=== PATIENT | male | born 1965 | race Caucasian/White ===

== ENCOUNTER 2018-07-07 21:12 | Inpatient (IN) ==
[2018-07-07] MEDS ORDERED: NITROGLYCERIN SL PRN (21:40)
[2018-07-07] MEDS ORDERED: ASPIRIN PO ONE (21:40)
[2018-07-07 21:58] LABS: BASO# 0.03 X1000 (0.0-0.2); BASO% 0.2 % (0.0-0.8); EOS# 0.26 X1000 (0.0-0.7); EOS% 2.2 % (0.0-10.0); HEMATOCRIT 45.5 % (42.0-52.0); HEMOGLOBIN 15.6 g/dL (14.0-18.0); IMM GRAN# 0.04 X1000 (0.0-0.04); IMM GRAN% 0.3 % (0.0-0.5); LYMPH# 2.07 X1000 (1.2-3.4); LYMPH% 17.2 % (20.5-51.1); MCH 32.1 PG (27-31); MCHC 34.3 g/dL (33-37); MCV 93.6 FL (81-99); MONO# 0.58 X1000 (0.11-0.59); MONO% 4.8 % (1.7-9.3); MPV 9.4 FL (7.4-10.4); NEUT# 9.08 X1000 (1.4-6.5); NEUT% 75.3 % (42.2-75.2); PLT 231 X1000 (130-400); RBC 4.86 XMIL (4.7-6.1); RDW 12.6 % (11.5-14.5); WBC 12.06 X1000 (4.8-10.8)
[2018-07-07 22:06] LABS: INR 0.98; PROTIME 13.8 Seconds (11.0-16.0)
[2018-07-07 22:07] LABS: PTT 30.2 Seconds (22.3-41.8)
--- NOTE | 2018-07-07 22:11 | Diag Imaging Result Doc PS360 ---
EXAM: CHEST-2 VIEWS - 07/07/2018 HISTORY: chest pain TECHNIQUE: Chest two views COMPARISON: None. FINDINGS: Heart size is normal. There is minimal linear atelectasis or scarring at the lateral left base. The lungs otherwise appear clear. There is no pleural effusion or pneumothorax identified. IMPRESSION: Minimal linear atelectasis or scarring at lateral left base. No other evidence of acute disease. Electronically signed by Blair Cabrales 07/07/2018 10:09 PM
[2018-07-07 23:01] LABS: AGAP 14; ALBUMIN 4.3 g/dL (3.5-5.0); ALKALINE PHOSPHATASE 74 U/L (32-122); BUN 13 mg/dL (8-22); CALCIUM 9.2 mg/dL (8.8-10.2); CHLORIDE 102 mmol/L (98-107); COSMO 278; ESTIMATED GFR > 60; GLUCOSE 147 mg/dL (70-104); GOT 27 U/L (10-34); GPT 33 U/L (10-44); POTASSIUM 3.4 mmol/L (3.5-5.1); SODIUM 138 mmol/L (136-145); TCO2 22 mmol/L (25-35); TOTAL BILIRUBIN 0.57 mg/dL (0.20-1.00); TOTAL PROTEIN 6.4 g/dL (6.3-8.3)
[2018-07-07 23:05] LABS: CK PROFILE 256 U/L (24-204)
[2018-07-07] MEDS ORDERED: NITROGLYCERIN TOP ONE (23:09)
[2018-07-07 23:25] LABS: CK-MB 2.66 ng/mL (0.0-5.0)
--- NOTE | 2018-07-07 23:48 | PROVIDER DOCUMENTATION ---
This chart was entered by Glo Mccarty Scribe, acting as scribe for Prem Torres MD. HPI-Chest Pain - General Chief Complaint: Chest Pain Stated Complaint: CHEST PAIN/HISTORY OF HEART PROBLEMS Time Seen by Provider: 07/07/18 21:52 Source: patient Allergies/Adverse Reactions: Patient Allergies Allergy/AdvReac Type Severity Reaction Status Date / Time No Known Allergies Allergy Verified 07/07/18 21:42 Home Medications: Home Medication List Medication Instructions Recorded Confirmed Last Taken Type Aspirin [Adult Low Dose Aspirin EC] 1 tab PO QAM 07/07/18 07/07/18 07/07/18 09: 00 History Hydrochlorothiazide 1 cap PO BID 07/07/18 07/07/18 07/07/18 09:00 History Metoprolol Succinate E.r. [Toprol 1 tab PO QAM 07/07/18 07/07/18 07/07/18 09:00 History Xl] Nitroglycerin [Nitrostat] 1 tab SL DIRECTED 07/07/18 07/07/18 Unknown History Ondansetron [Zofran Odt] 1 tab SL Q6H PRN PRN 07/07/18 07/07/18 Unknown History Prasugrel [Effient] 1 tab PO QAM 07/07/18 07/07/18 07/07/18 09:00 History Rosuvastatin Calcium [Crestor] 1 tab PO QPM 07/07/18 07/07/18 07/06/18 21:00 History - History of Present Illness-CP Nature of Presenting Problem: pt is a 52 yr old male presenting with complaint of chest pain, sudden onset at 1899 this date, now resolved. pt admits shortness of breath with episode, took 1 asa, no nitro. pt reports pressure like pain radiated down left arm, pt denies nausea/vomiting. pt does admit stent placed 04/21 Location: reports: central Chest Pain Radiation: reports: arms (left) Quality of Pain: reports: pressure Severity in ED: moderate (10/12) Onset/Duration: abrupt (1899) Timing: still present Context/Activities at Onset: reports: light activity Modifying Factors: improves with: analgesics (ASA-complete relief) Associated Symptoms: reports: shortness of breath. denies: abdominal pain, nausea, vomiting Nitro Today/Relief: no nitro taken today Aspirin Treatment Today: 325 mg x 1, provided at home Similar Symptoms Previously?: Yes Recently Seen Here or By Another Healthcare Provider: No Review of Systems - Adult - REVIEW OF SYSTEMS - ADULT Constitutional: denies: chills, fever Eyes: denies: blurred vision, double vision Ears, Nose, Mouth & Throat: reports: no symptoms reported Cardiovascular: reports: chest pain. denies: palpitations, syncope Respiratory: reports: shortness of breath. denies: cough, wheezing Gastrointestinal: denies: nausea, vomiting Genitourinary: reports: no symptoms reported Musculoskeletal: denies: back pain, muscle aches, neck pain Integumentary: reports: no symptoms reported Neurological: denies: dizziness/vertigo, headache/migraines Psychiatric: reports: no symptoms reported Endocrine: reports: no symptoms reported Hematologic/Lymphatic: reports: no symptoms reported Allergic/Immunologic: reports: no symptoms reported All Other Systems: Reviewed and Negative Past History - Adult - PAST MEDICAL HISTORY-ADULT Review of Records: reports: Old Records Reviewed, Nursing Assessment Review, Medications Reviewed, Social history reviewed & non-contributory. Major Childhood Illnesses: reports: denies history Cardiovascular: reports: denies history Respiratory: reports: denies history Gastrointestinal: reports: denies history Obstetrical/Gynecological: reports: denies history Genitourinary: reports: denies history Musculoskeletal: reports: denies history Neurological: reports: denies history Endocrine/Immune: reports: denies history Other Conditions: reports: denies history - IMMUNIZATION STATUS Childhood Immunizations: See Nurse Assessment Flu Vaccine: See Nurse Assessment - FAMILY HISTORY Family History: reviewed, not pertinent - SOCIAL HISTORY Smoking: cigarettes Provider spent 3-5 mins advising pt. on dangers of tobacco.: Discussed manners to quit use, and f/u contacts for add'l counseling. Substance Use: denies Living Situation: family Physical Exam-General - PHYSICAL EXAM-ADULT Initial Vital Signs Reviewed: Yes - CONSTITUTIONAL General Appearance: appears well, alert, no apparent distress - EYES Eyes: PERRL/EOMI - HEAD, EARS, NOSE, MOUTH & THROAT HENMT: normocephalic/atraumatic, moist mucous membranes, normal ENT inspection - NECK Neck: non-tender, full range of motion, supple - RESPIRATORY Respiratory: chest non-tender, lungs clear, normal breath sounds - CARDIOVASCULAR Cardiovascular: normal peripheral pulses, regular rate, rhythm, no edema - GASTROINTESTINAL (ABDOMEN) Abdominal Exam: normal bowel sounds, non tender, soft - LYMPHATIC Lymphatic: no adenopathy - MUSCULOSKELETAL Back Exam: normal inspection, no CVA tenderness, no vertebral tenderness Extremity: normal range of motion, non-tender, normal gait, normal inspection - SKIN Integumentary: normal color, normal turgor, warm/dry - NEUROLOGIC Neurologic: grossly normal, no motor/sensory deficits - PSYCHIATRIC Psych/Mental Status: normal mood/affect, normal thought content, normal thought process, oriented x 3 - HEART Score HEART Score: History: Slightly Suspicious HEART Score: ECG: Non-Specific Repolarization Disturbance/LBBB/PM HEART Score: Age: 45-65 Years HEART Score: Risk Factors for Atherosclerotic Disease: > or = 3 Risk Factors or History of Atherosclerotic Disease HEART Score: Troponin: < or = Normal Limit Total HEART Score:: 4 Progress - PLAN OF CARE/RESULTS Progress/Plan/Lab Results: Vital Signs - 8 hr 07/07/18 21:20 07/07/18 21:52 07/07/18 21:53 Temperature 97.6 F Pulse Rate 96 H 89 85 Respiratory Rate 15 20 21 Blood Pressure 145/79 143/96 O2 Sat by Pulse Oximetry 100 96 07/07/18 22:10 07/07/18 22:19 07/07/18 22:21 Temperature Pulse Rate 89 83 78 Respiratory Rate 29 H 18 25 H Blood Pressure 125/83 O2 Sat by Pulse Oximetry 96 96 96 Laboratory Results - last 24 hr 07/07/18 07/07/18 07/07/18 21:41 21:41 21:41 WBC 12.06 H RBC 4.86 Hgb 15.6 Hct 45.5 MCV 93.6 MCH 32.1 H MCHC 34.3 RDW Std Deviation 12.6 Plt Count 231 MPV 9.4 Immature Gran % (Auto) 0.3 Neut % (Auto) 75.3 H Lymph % (Auto) 17.2 L [place] % (Auto) 4.8 Eos % (Auto) 2.2 Baso % (Auto) 0.2 Immature Gran # (Auto) 0.04 Neut # (Auto) 9.08 H Lymph # (Auto) 2.07 [place] # (Auto) 0.58 Eos # (Auto) 0.26 Baso # (Auto) 0.03 PT INR PTT (Actin FS) Sodium 138 Potassium 3.4 L Chloride 102 Carbon Dioxide 22 L Anion Gap 14 BUN 13 Creatinine 1.0 Estimated GFR/1.73 m2 > 60 BUN/Creatinine Ratio 13 Glucose 147 H Calculated Osmolality 278 Calcium 9.2 Total Bilirubin 0.57 AST 27 ALT 33 Alkaline Phosphatase 74 Creatine Kinase 256 H Creatine Kinase Index 1.0 CK-MB (CK-2) 2.66 Troponin T [id number] Pept 52 Total Protein 6.4 Albumin 4.3 Globulin 2.1 Albumin/Globulin Ratio 2.0 07/07/18 07/07/18 21:41 21:41 WBC RBC Hgb Hct MCV MCH MCHC RDW Std Deviation Plt Count MPV Immature Gran % (Auto) Neut % (Auto) Lymph % (Auto) [place] % (Auto) Eos % (Auto) Baso % (Auto) Immature Gran # (Auto) Neut # (Auto) Lymph # (Auto) [place] # (Auto) Eos # (Auto) Baso # (Auto) PT 13.8 INR 0.98 PTT (Actin FS) 30.2 Sodium Potassium Chloride Carbon Dioxide Anion Gap BUN Creatinine Estimated GFR/1.73 m2 BUN/Creatinine Ratio Glucose Calculated Osmolality Calcium Total Bilirubin AST ALT Alkaline Phosphatase Creatine Kinase Creatine Kinase Index CK-MB (CK-2) Troponin T < 0.010 [id number] Pept Total Protein Albumin Globulin Albumin/Globulin Ratio Orders Category Date Time Status Cardiac Monitoring DIRECTED Care 07/07/18 21:41 Active Oxygen Therapy- ED Nursing DIRECTED Care 07/07/18 21:41 Active Saline Loc NOW Care 07/07/18 21:41 Active CHEST-2 VIEWS [RAD] Stat Exams 07/07/18 21:41 Completed CBC WITH ELECTRONIC DIFF [HEME] Stat Lab 07/07/18 21:41 Completed CK PROFILE [SP CHEM] Stat Lab 07/07/18 21:41 Completed COMPREHENSIVE METABOLIC PANEL [CHEM] Stat Lab 07/07/18 21:41 Completed PRO B-NATRIURETIC PEPTIDE Stat Lab 07/07/18 21:41 Completed PROTIME WITH INR [COAG] Stat Lab 07/07/18 21:41 Completed PTT [COAG] Stat Lab 07/07/18 21:41 Completed TROPONIN T Stat Lab 07/07/18 21:41 Completed TROPONIN T Stat Lab 07/07/18 23:37 Uncollected Aspirin Med 07/07/18 21:40 Discontinued 325 mg PO NOW ONE Nitroglycerin Med 07/07/18 23:09 Discontinued 0.5 inch TOP NOW ONE Nitroglycerin Sl [Nitroglycerin] Med 07/07/18 21:40 Discontinued 0.4 mg SL Q5M PRN PRN CP/SOB/Palp >45 yrs of Age Stat Oth 07/07/18 21:40 Ordered EKG [EKG] Stat Ther 07/07/18 21:41 Ordered A/P: Chest pain. Heart Score 3, had 2 stints placed in Apr 21, since this afternoon. First set trops neg. Vitals stable. Will admit for observation. Dr fraser will accept patient Result Diagrams: 07/07/18 21:41 07/07/18 21:41 - EKG 1 Time of EKG reading by physician:: 21:35 EKG Read and Signed by:: Prem Torres EKG Interpretation (*Must complete 3 of following elements*): Abnormal (non specific st and t wave abnormality) Rate: 96 Rhythm: sinus rhythm with short pr [place]: normal VT Interval: shortened - XRAY 1 XRAY Study: Chest Impression: Abnormal (Signed EXAM: CHEST-2 VIEWS - 07/07/2018 HISTORY: chest pain TECHNIQUE: Chest two views COMPARISON: None. FINDINGS: Heart size is normal. There is minimal linear atelectasis or scarring at the lateral left base. The lungs otherwise appear clear. There is no pleural effusion or pneumothorax identified. IMPRESSION: Minimal linear atelectasis or scarring at lateral left base. No other evidence of acute disease. Electronically signed by Blair Cabrales 07/07/2018 10:09 PM 07/07/182208 Interpreting Physician: Blair Cabrales MD Dictated Date/Time: 07/07/182206 cc : Radha Lezama MD;) - CONSULTS/PCP/HOSPITALIST Notification #1 *Consult/PCP/Hospitalist*: Dr fraser Time Discussed: 23:46 Consult Disposition: Admit Departure - Departure Date of Disposition Decision: 07/07/18 Time of Disposition Decision: 23:47 DIAGNOSIS: Chest pain Disposition: ADMITTED INPATIENT 09 Certified Medical Emergency: Emergent Condition: Fair Additional Freetext Instructions: ED Follow Up Instructions: You have been treated by a care provider in the Emergency Department. These instructions are being provided to you so you can have an understanding of how to care for yourself upon discharge. Upon discharge from the Emergency Department, you are responsible for making arrangements for follow-up care by a physician of your choice. Take all prescribed medications as directed. Return to the Emergency Department immediately for any new or worsening symptoms. You may call the Physician Referral phone number at [phone] to obtain a list of Physicians who are taking new patients. Discharge Education: Steps to Quit Smoking, [id number] - Critical Care Note This patient required my direct & personal management of CC.: No Attestation - Physician/ GIANNA Attestation Patient care was provided by Advanced Practice Provider:: No The physician spent face to face time with patient:: Yes Advanced Practice Provider documentation review:: Supervising physician onsite and consulted in the evaluation and care of this patient. The physician did have a face to face encounter with the patient. This chart was documented by the indicated scribe, (Glo Mccarty, Marlene) and accurately reflects the services I performed and decisions made by me, Prem Torres MD, as attested by the provider's signature.
[2018-07-08] MEDS ORDERED: KLOR-CON PO ONE (00:34)
[2018-07-08 00:59] LABS: CK INDEX 1.1 (0.0-2.5); CK-MB 2.48 ng/mL (0.0-5.0)
--- NOTE | 2018-07-08 01:17 | HISTORY AND PHYSICAL ---
Addendum Patient presented with chest pain. He is a CAD patient. He had a recent PCI in April. He was evaluated in the ER. His EKG also showed nonspecific ST changes. He reports chest pain, pressure similar to his previous anginal equivalent. He also had radiation down to his left arm. He has been compliant with all his medications. EXAM: Really unremarkable. Cardiac: Regular rate and rhythm. Pulmonary: Bilateral breath sounds. Clear to auscultation. DIAGNOSTICS: EKG was nonspecific. ASSESSMENT AND PLAN: The patient will be placed in observation for chest pain, serial enzymes. He just, I am not sure about myocardial perfusion imaging since he just had a catheterization about 3 months ago so, we will get Cardiology to evaluate in the morning and decide about that. We will keep him NPO in the meantime, pursue echo, and follow closely. cc: Deyvi Alexander MD
[2018-07-08] MEDS ORDERED: ZOFRAN ODT SL PRN (01:31)
[2018-07-08] MEDS ORDERED: TYLENOL PO PRN (01:31)
[2018-07-08] MEDS ORDERED: NITROGLYCERIN SL PRN (01:31)
[2018-07-08] MEDS ORDERED: ZOFRAN IV PRN (01:31)
[2018-07-08] MEDS: LOVENOX SUBQ SCH (02:01)
--- NOTE | 2018-07-08 02:12 | HISTORY AND PHYSICAL ---
CHIEF COMPLAINT: Chest pain. HISTORY OF PRESENT ILLNESS: This is a 52-year-old male with a history of hypertension, hyperlipidemia and coronary artery disease who previously had a stent in April 2018. He stated that he started having sudden onset chest pain today at around 1900. It was midsternal, radiated into his left arm. He said it was roughly 6/10. He had complete resolution of symptoms with taking a 325 mg aspirin. He stated the pain was more of a pressure. On arrival to the emergency room, as noted, his symptoms had resolved. He has a HEART score of 4. He will be admitted and observed with Cardiology consultation. PAST MEDICAL HISTORY: See HPI. PREVIOUS SURGICAL HISTORY: Tonsillectomy, cyst removal from right foot. 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 Smokes 1/2 pack of cigarettes per day. He is down from 2 packs of cigarettes per day. Has smoked for multiple years. He denies alcohol or illicit drugs. FAMILY HISTORY: Coronary artery disease and diabetes mellitus in first-degree relatives. ALLERGIES: No known drug allergies. HOME MEDICATIONS: Aspirin 81 mg p.o. daily, hydrochlorothiazide 12.5 mg p.o. b.i.d., Toprol 50 mg p.o. q.a.m., nitroglycerin 0.4 mg p.r.n., Zofran 8 mg q.6 p.r.n., Effient 10 mg one p.o. q.a.m., Crestor 20 mg p.o. q.a.m. REVIEW OF SYSTEMS: A 14-point review of systems conducted with the patient. Pertinent positives listed above in the HPI. All other systems reviewed and found to be negative. PHYSICAL EXAMINATION: VITAL SIGNS: Temperature 97.6, pulse 82, respirations 17, blood pressure 139/85, oxygen saturation 96% on room air. GENERAL: Pleasant 52-year-old male lying in the ER stretcher, awake, alert, oriented x3, answers all questions appropriately. HEENT: Head is atraumatic, normocephalic. Pupils equal, round, reactive to light. Extraocular eye movements intact. Sclerae are anicteric. Conjunctivae are pink. Oral mucosa is moist. NECK: Supple. No JVD. No thyromegaly. Trachea is midline. No cervical lymphadenopathy. CARDIAC: S1, S2 appreciated. No murmurs, gallops, or rubs. LUNGS: Decreased at bilateral bases. No rhonchi, wheezes, rales. Symmetric rise and fall with respirations. ABDOMEN: Soft, nondistended, nontender. Bowel sounds present in all 4 quadrants, normoactive. No pulsatile mass. No organomegaly. EXTREMITIES: No clubbing, cyanosis, or edema. GENITOURINARY: Patient voids. No bladder distention. Otherwise deferred. NEUROLOGICAL: Alert and oriented x3. No focal or motor deficits noted. Nonfocal examination. DIAGNOSTIC DATA: Chest x-ray: No pulmonary vascular congestion. Appears to be atelectasis or scarring at the left base. No infiltrate. Chronic COPD changes. LABORATORY DATA: WBC 12.06, hemoglobin 15.6, hematocrit 45.5, platelet count 231,000. Coagulations within normal limits. Sodium 138, potassium 3.4, chloride 102, carbon dioxide 22, BUN 13, creatinine 1, glucose 147. CK mildly elevated at 256. Troponin less than 0.010 x2 sets. ASSESSMENT AND PLAN: 1. Chest pain. Rule out acute myocardial infarction. A 325 aspirin was given in the emergency room. Nitroglycerin paste was placed on the patient's chest. He was mildly hypertensive on arrival. Will continue his beta rebecca, thiazide diuretic, his statin and his Effient. Consult Dr. Warren. Defer to Cardiology stress test versus cardiac catheterization. Recheck EKG in a.m. Trend cardiac enzymes. 2. Hypokalemia. Will give 40 mEq potassium, recheck in the a.m. 3. Hypertension. Continue home medications. 4. Hyperlipidemia. Continue home medications. 5. Tobacco use and abuse. Smoking cessation was gone over with the patient. He is working on quitting. He has cut back from 2 packs to 1/2 pack per day. Further recommendations per the patient's clinical course. Dictated by CARLOS Mendoza for Deyvi Alexander MD cc: CARLOS Mendoza MD
[2018-07-08 04:00] LABS: CK INDEX 1.2 (0.0-2.5); CK-MB 2.58 ng/mL (0.0-5.0)
[2018-07-08] MEDS: PRILOSEC PO SCH (06:15)
[2018-07-08 07:36] LABS: AGAP 11; BUN 11 mg/dL (8-22); CALCIUM 9.2 mg/dL (8.8-10.2); CHLORIDE 106 mmol/L (98-107); COSMO 277; CREATININE 0.7 mg/dL (0.7-1.2); ESTIMATED GFR > 60; GLUCOSE 107 mg/dL (70-104); POTASSIUM 4.1 mmol/L (3.5-5.1); SODIUM 139 mmol/L (136-145); TCO2 22 mmol/L (25-35)
--- NOTE | 2018-07-08 08:01 | EKG Report ---
Test Performed on : 07/08/2018 06:30:52 AM Test Reason : CP Blood Pressure : / mmHG Vent. Rate : 067 BPM Atrial Rate : 067 BPM P-R Int : 146 ms QRS Dur : 084 ms QT Int : 416 ms P-R-T Axes : 074 014 029 degrees QTc Int : 439 ms Normal sinus rhythm. Normal ECG When compared with ECG of 07-JUL-2018 21:33, (Unconfirmed) Nonspecific T wave abnormality no longer evident in Inferior leads Nonspecific T wave abnormality no longer evident in Lateral leads Unconfirmed Result
--- NOTE | 2018-07-08 08:08 | EKG Report ---
Test Performed on : 07/07/2018 9:33:05 PM Test Reason : CP Blood Pressure : / mmHG Vent. Rate : 096 BPM Atrial Rate : 096 BPM P-R Int : 106 ms QRS Dur : 078 ms QT Int : 358 ms P-R-T Axes : 034 -09 028 degrees QTc Int : 452 ms Sinus rhythm. with short [place] Nonspecific ST and T wave abnormality Abnormal ECG No previous ECGs available Unconfirmed Result
[2018-07-08] MEDS ORDERED: ASPIRIN PO SCH (09:00)
[2018-07-08] MEDS ORDERED: TOPROL XL PO SCH ×2 (09:00→21:00)
[2018-07-08] MEDS ORDERED: EFFIENT PO SCH (09:00)
[2018-07-08] MEDS: HYDROCHLOROTHIAZIDE PO SCH ×2 (10:26→20:48)
[2018-07-08] MEDS ORDERED: COZAAR PO SCH (11:30)
--- NOTE | 2018-07-08 11:34 | PROGRESS NOTE ---
DATE: 07/08/2018 SUBJECTIVE: This morning, Mr. Null referred to be doing a lot better. Does not have any more chest pain. Of note, Mr. Null is a 52-year-old gentleman who has a history of hypertension, recently had a stent in the RCA April last year by Dr. Arreola in [place]. Presented to the emergency department yesterday because of acute onset of chest pain with extremely elevated blood pressure at home. This morning he feels a lot better. Chest pain is improved. OBJECTIVE: Vital signs: Blood pressure is 103/69, pulse is 63, respirations 16, temperature 98.1 degrees. The patient is saturating 97% on room air. General: Mr. Null is a 52-year-old gentleman he is in bed. No distress. HEENT: Mucosa is pink and moist. Anicteric. Acyanotic. Neck: Supple. Chest: Clear to auscultation. There were no crepitations, no rhonchi. Cardiovascular: Regular rate and rhythm. No murmurs, no rubs, no gallops. GI: Abdomen soft. Nontender. Bowel sounds present. Extremities: No pedal edema. Distal pulses are present. 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 There is no focal neurological deficit. LABORATORY DATA: None for today except for chemistry, which looks completely normal. The patient troponins have been trended 3 times. All have been negative. DIAGNOSTIC DATA: An EKG yesterday showed a normal sinus rhythm with normal axis, some ST-segment depression in V3, V4, V5, V6, but no T-waves abnormality. A repeat EKG this morning shows normalization of the mildly depressed ST-segment. ASSESSMENT: 1. Chest pain in somebody who had recently been treated for CT has stent in the right RCA S so in the right coronary. Troponins so far have been negative, but he did have some ST-segment depression in the lateral leads. I think it is reasonable to be seen by Cardiology and probably go ahead with a stress test. We will, however, wait for Cardiology recommendations on that. 2. Tobacco abuse. Patient has been counseled on cessation. 3. Hypertension. Stable. 4. Dyslipidemia. Controlled. The patient is on Crestor. So in general I think Mr. Null seems to be doing fairly okay. Pain has resolved. His medications have all been reviewed. I have not made any changes. We will be pending Cardiology evaluation today and go from there. cc: Yamil Khan MD
--- NOTE | 2018-07-08 11:59 | CONSULTATION ---
DATE OF CONSULTATION: 07/08/2018 IMPRESSION: 1. Episode of tachy palpitations with [id number] chest pressure for approximately 1 hour. Cardiac enzymes negative. Consider possible tachyarrhythmia precipitating symptoms. 2. Atherosclerotic coronary disease. Patient is status post angioplasty/stenting with drug- eluting stent to distal right coronary artery in April of 2018. Distal circulation beyond stented area reported to be of limited sized. 3. Hypertension. 4. Hyperlipidemia. 5. Tobacco abuse. RECOMMENDATIONS: 1. Lexiscan sestamibi study. 2. Empirically increased beta blockade to cover possible tachyarrhythmia. 3. Smoking cessation reinforced. HISTORY: This 52-year-old white male with past history of atherosclerotic coronary disease as outlined above. Hypertension, hyperlipidemia and tobacco abuse was admitted after he presented with tachy palpitations, and mild amount of chest pressure lasting perhaps an hour. He also had some associated shortness of breath. Symptoms started while he was seated in a chair. Elevated heart rate was noted when he checked his blood pressure as well as elevated blood pressure. Chest discomfort rated as a 4 on a scale of 10. He had somewhat similar symptoms prior to his coronary angioplasty/stent procedure. PAST MEDICAL HISTORY: 1. Atherosclerotic coronary disease. 2. Hypertension. 3. Hyperlipidemia. 4. Gastroesophageal reflux disease. 5. Tobacco abuse. PAST SURGICAL HISTORY: 1. Tonsillectomy. 2. Cyst removal from right foot. 3. Unspecified left arm surgery. ALLERGIES: He has no known drug allergies. MEDICATIONS PRIOR TO ADMISSION: As listed. 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 He has history of tobacco use. He does not use alcohol. FAMILY HISTORY: Positive for coronary artery disease. REVIEW OF SYSTEMS: Pulmonary: Negative beyond history of present illness. Constitutional: Negative beyond history of present illness. Gastrointestinal: Negative beyond history of present illness. Remainder of review of systems negative/noncontributory beyond history of present illness with 14 total systems reviewed. PHYSICAL EXAMINATION: General: This is an overweight middle-aged white male in no distress. Vital signs: Blood pressure 103/69, heart rate 63 and regular, and weight 234 pounds. HEENT: Extraocular movements appear intact. Mucous membranes are moist. Neck: Supple without jugular venous distention. No carotid bruits. Chest: Clear to auscultation bilaterally. Cardiac: Reveals a regular rate and rhythm without appreciable murmur or gallop. Abdomen: Soft and nontender. Bowel sounds normal. Extremities: Without edema. Neurologic: Exam reveals him to be alert and fully oriented. Speech is fluent. Moves all 4 extremities equally well. Skin: Warm and dry. Psychiatric: Reveals mood to be appropriate. PERTINENT DATA: Twelve lead EKG demonstrates normal sinus rhythm is within normal limits. LABORATORY DATA: Includes initial troponin less than 0.01. Followup troponin less than 0.01. Sodium 139, potassium 4.1, chloride 106, carbon dioxide 22, BUN 11, creatinine 0.7, glucose 107, triglycerides 66, total cholesterol 88, LDL cholesterol 47, and HDL cholesterol 37. D-dimer less than 0.27. cc: Oseas Bautista MD
[2018-07-08] MEDS ORDERED: LEXISCAN ONE (13:28)
--- NOTE | 2018-07-08 15:38 | Diag Imaging Result Document ---
PROCEDURE NAME: MYOCARDIAL PERF SCAN, STR/REST - 07/08/2018 FINDINGS/DESCRIPTION OF STUDY: Lexiscan Cardiolite stress test: Lexiscan was infused per standard protocol. There was no chest pain. Stress electrocardiogram was negative for ischemia. Following Lexiscan infusion, Cardiolite was injected, and 14.9 mCi of Cardiolite was injected for the rest phase and 44.2 mCi of Cardiolite was injected for the stress phase. Gated SPECT images were obtained in standard views. Images revealed normal left ventricular cavity size. Left ventricular ejection fraction by gated SPECT was 66%. There is a low grade, small to moderate size reversible perfusion defect in the inferior wall suggestive of ischemia. In addition, there is a low-grade reversibility in the inferolateral wall. Left ventricular ejection fraction 66%. CONCLUSIONS: 1. No chest pain. 2. Negative Lexiscan stress electrocardiogram. 3. Myocardial perfusion images revealed low-grade small to moderate sized reversible perfusion defect in the inferior wall and a low-grade defect in the inferolateral wall suggestive of ischemia. 4. Left ventricular ejection fraction by gated SPECT was 66%. cc: MD Yisel Durant PA
--- NOTE | 2018-07-08 16:54 | CARDIOLOGY PROGRESS NOTE ---
DATE: 07/08/2018 SUBJECTIVE: Patient continues without further chest discomfort or dyspnea on room air. OBJECTIVE: Vital Signs: Blood pressure 115/70, heart rate 62, oxygen saturation 96% on room air. Chest: Clear to auscultation. Cardiac: Exam reveals a regular rate and rhythm without appreciable murmur or gallop. DIAGNOSTIC STUDIES: Lexiscan sestamibi reports inducible ischemia in the inferior wall. IMPRESSION: 1. Recurrent chest discomfort, probably angina with associated palpitations. 2. Status post angioplasty/stenting of distal right coronary in April 2018. Lexiscan sestamibi study suggest likely restenosis. 3. Hypertension. 4. Hyperlipidemia. 5. Tobacco abuse. RECOMMENDATIONS: Results of abnormal Lexiscan sestamibi study discussed with the patient. Further evaluation with cardiac catheterization and selective coronary geography recommended. He prefers to transfer to [facility] for further evaluation with cardiac catheterization, given that this is where he had coronary stent placed. Arrangements have been made for patient to be transferred to [facility] tomorrow morning to have cardiac catheterization/coronary angiography/possible coronary intervention. cc: Oseas Bautista MD
[2018-07-08] MEDS ORDERED: CRESTOR PO SCH (21:00)
[2018-07-09] MEDS: LOVENOX SUBQ SCH (01:30)
[2018-07-09 07:23] LABS: BASO# 0.03 X1000 (0.0-0.2); BASO% 0.3 % (0.0-0.8); EOS# 0.19 X1000 (0.0-0.7); HEMATOCRIT 48.4 % (42.0-52.0); HEMOGLOBIN 16.1 g/dL (14.0-18.0); IMM GRAN# 0.04 X1000 (0.0-0.04); IMM GRAN% 0.4 % (0.0-0.5); LYMPH# 2.51 X1000 (1.2-3.4); LYMPH% 26.7 % (20.5-51.1); MCH 31.4 PG (27-31); MCHC 33.3 g/dL (33-37); MCV 94.3 FL (81-99); MONO% 5.3 % (1.7-9.3); MPV 9.5 FL (7.4-10.4); NEUT# 6.12 X1000 (1.4-6.5); NEUT% 65.3 % (42.2-75.2); PLT 235 X1000 (130-400); RBC 5.13 XMIL (4.7-6.1); RDW 12.7 % (11.5-14.5); WBC 9.39 X1000 (4.8-10.8)
[2018-07-09 07:31] VITALS: BP 101/66
[2018-07-09] MEDS: PRILOSEC PO SCH (07:35)
[2018-07-09 07:58] LABS: AGAP 13; BUN 12 mg/dL (8-22); CALCIUM 8.8 mg/dL (8.8-10.2); CHLORIDE 100 mmol/L (98-107); COSMO 271; CREATININE 0.7 mg/dL (0.7-1.2); ESTIMATED GFR > 60; GLUCOSE 111 mg/dL (70-104); POTASSIUM 4.2 mmol/L (3.5-5.1); SODIUM 135 mmol/L (136-145); TCO2 22 mmol/L (25-35)
--- NOTE | 2018-07-10 13:32 | DISCHARGE SUMMARY ---
ADMISSION DATE: 07/08/2018 DISCHARGE DATE: 07/09/2018 DISPOSITION: [facility]. CONSULTATION DURING THIS ADMISSION: Cardiology was consulted. Patient was seen by Dr. Bautista. INVASIVE PROCEDURES DONE DURING THIS ADMISSION: None. IMAGING STUDIES OF SIGNIFICANCE: 1. A chest x-ray was unremarkable. 2. A myocardial perfusion scan did reveal some low-grade to moderate sized reversible perfusion defect in the inferior wall, and low grade defect in the inferolateral wall suggestive of ischemia. ADMISSION DIAGNOSES: 1. Chest pain. 2. Hypokalemia. 3. Hypertension. 4. Tobacco abuse. DIAGNOSES AT TIME OF DISCHARGE: 1. Chest pain with abnormal stress test in patient who had previous GA with stent in the RCA. The patient was transferred to [facility] [place] for further cardiology evaluation. 2. Tobacco abuse. Patient was counseled. 3. Hypertension stable. 4. Dyslipidemia. PRESENTING COMPLAINT: Chest pain. HISTORY OF PRESENTING COMPLAINT: Mr. Null is a 52-year-old male who is known to have coronary artery disease status post stent in the RCA before. He came to the emergency department because of on and off chest pain. Patient was evaluated and was treated with aspirin, morphine and admitted for further medical care. HOSPITAL COURSE: Mr. Null was admitted to the medical floor, and was seen also by Cardiology. A stress test was done which was remarkably abnormal. Cardiology discussed the results with him. He preferred to go to [place] for left heart catheterization. This was arranged by Cardiology. Patient was subsequently transferred in stable condition to [facility] for further cardiac risk stratification. cc: Yamil Khan MD
== END 2018-07-09 08:25 | disposition short-term general hospital (02) | DRG 303 ==
LOC: ED 21:12 → 3N 07-08 00:24 → SUATTDRO 07-08 00:24
PROVIDERS: ATTEND Internal Medicine
CPT/HCPCS: 71020; 71046; 78452; 80048; 80053; 80061; 82550; 82553; 83721; 83880; 84484; 85025; 85379; 85610; 85730; 93005; 93017; 99285; A9270; A9500; J1650; J2785